=== PATIENT | male | born 1940 | race Caucasian/White ===

== ENCOUNTER 2020-07-19 19:37 | Inpatient (IN) ==
[2020-07-19] MEDS ORDERED: Aspirin 81 MG TAB.CHEW PO STA (21:37)
[2020-07-19] MEDS ORDERED: Ondansetron 4 MG/2 ML VIAL IVP PRN (22:01)
[2020-07-19] MEDS ORDERED: Acetaminophen 325 MG TABLET PO PRN (22:01)
[2020-07-19] MEDS ORDERED: Naloxone 0.4 MG/ML INJ IVP PRN (22:01)
[2020-07-19] MEDS ORDERED: Perflutren Lipid Microsphere 1.3 ML in 0.9 % Sodium Chloride 8.7 ML IVP PRN (22:04)
[2020-07-19] MEDS ORDERED: *HR* Dextrose 50 % in Water (Vial) 50 ML VIAL IVP PRN (22:05)
[2020-07-19] MEDS ORDERED: Dextrose Gel 15 GM/37.5 ML TUBE PO PRN ×2 (22:05)
[2020-07-19] MEDS ORDERED: D5% in Water 1,000 ML IVC PRN (22:05)
[2020-07-20] MEDS: Insulin LISPRO 300 UNITS/3 ML VIAL SUBQ SCH ×4 (00:06→18:18)
[2020-07-20 02:10] LABS: Basophils # 0.1 K/mcL (0.0-0.2); Basophils % 0.5 %; Eosinophils # 0.2 K/mcL (0.0-0.6); Eosinophils % 2.4 %; Hematocrit 36.3 % (37.5-50.1); Hemoglobin 11.5 g/dL (12.9-16.9); Immature Granulocytes % 0.4 % (0-4); Lymphocytes # 1.3 K/mcL (0.6-4.6); Lymphocytes % 14.6 %; Mean Corpuscular HGB Conc 31.7 g/dL (31.6-35.5); Mean Corpuscular Hemoglobin 29.7 pg (28.0-33.3); Mean Corpuscular Volume 93.8 fL (83.0-100.0); Mean Platelet Volume 10.6 fL (9.4-12.4); Monocytes # 0.7 K/mcL (0.0-1.3); Monocytes % 7.8 %; Neutrophils # 6.8 K/mcL (1.6-8.9); Platelet Count 266 K/mcL (140-400); Red Blood Count 3.87 M/mcL (4.19-5.50); Red Cell Distribution Width 15.4 % (11.5-14.5); Segmented Neutrophils % 74.3 %; White Blood Count 9.2 K/mcL (4.3-11.1)
[2020-07-20 02:15] LABS: INR 1.2; Prothrombin Time 14.1 Seconds (9.4-12.1)
[2020-07-20 02:37] LABS: Alanine Aminotransferase 27 Units/L (7-52); Albumin 3.5 g/dL (3.5-5.7); Albumin/Globulin Ratio 1.3 (1.1-2.2); Alkaline Phosphatase 85 Units/L (34-104); Aspartate Amino Transferase 22 Units/L (13-39); BUN/Creatinine Ratio 19 (6-26); Bilirubin,Total 0.6 mg/dL (0.3-1.0); Blood Urea Nitrogen 15 mg/dL (8-23); Calcium 8.1 mg/dL (8.6-10.3); Carbon Dioxide 25 mEq/L (23-29); Chloride 108 mEq/L (98-107); Chol/HDL Ratio 1.9 (0-4.9); Cholesterol 96 mg/dL (< 200); Globulin 2.6 g/dL (2.4-3.5); Glucose 244 mg/dL (70-105); HDL Cholesterol 51 mg/dL (40-59); LDL Cholesterol,Calculated 35 mg/dL (< 100); Osmolality,Calculated 295 (280-300); Potassium 4.1 mEq/L (3.5-5.1); Sodium 138 mEq/L (136-145); Total Protein 6.1 g/dL (6.4-8.9); Triglycerides 51 mg/dL (< 150); eGFR For African Americans > 60 (> 60); eGFR For Non-African Americans > 60 (> 60)
[2020-07-20] MEDS ORDERED: Regadenoson 0.4 MG/5 ML SYRINGE IVP ONE (09:10)
[2020-07-20] MEDS: Aspirin 81 MG TAB.CHEW PO SCH (13:30)
[2020-07-20] MEDS: Metoprolol XL (24 HR) Succ 25 MG TAB.ER.24H PO SCH (13:30)
[2020-07-20] MEDS ORDERED: NON-FORMULARY MEDICATION 1 EACH EACH (Insulin Glargine [Lantus] 20 UNIT) SQ SCH (21:00)
[2020-07-20] MEDS: Insulin DETEMIR 100 UNIT/ML X5UNITS SUBQ SCH (21:49)
[2020-07-21] MEDS: Insulin LISPRO 300 UNITS/3 ML VIAL SUBQ SCH ×5 (00:23→23:23)
[2020-07-21 04:44] LABS: Hematocrit 38.2 % (37.5-50.1); Mean Corpuscular HGB Conc 31.4 g/dL (31.6-35.5); Mean Corpuscular Hemoglobin 29.5 pg (28.0-33.3); Mean Corpuscular Volume 93.9 fL (83.0-100.0); Platelet Count 276 K/mcL (140-400); Red Blood Count 4.07 M/mcL (4.19-5.50); Red Cell Distribution Width 15.1 % (11.5-14.5); White Blood Count 8.3 K/mcL (4.3-11.1)
[2020-07-21 05:00] LABS: BUN/Creatinine Ratio 20 (6-26); Blood Urea Nitrogen 16 mg/dL (8-23); Calcium 8.5 mg/dL (8.6-10.3); Carbon Dioxide 25 mEq/L (23-29); Chloride 107 mEq/L (98-107); Glucose 159 mg/dL (70-105); Osmolality,Calculated 293 (280-300); Potassium 4.2 mEq/L (3.5-5.1); Sodium 139 mEq/L (136-145); eGFR For African Americans > 60 (> 60); eGFR For Non-African Americans > 60 (> 60)
[2020-07-21] MEDS ORDERED: lisinopriL 20 MG TABLET PO SCH (09:00)
[2020-07-21] MEDS: Metoprolol XL (24 HR) Succ 25 MG TAB.ER.24H PO SCH (10:23)
[2020-07-21] MEDS: Aspirin 81 MG TAB.CHEW PO SCH (10:23)
[2020-07-21] MEDS ORDERED: *HR* Heparin 10,000 UNIT/10 ML VIAL ONE (10:47)
[2020-07-21] MEDS ORDERED: Heparin 1,000 UNITS/500 mL 500 ML ONE (10:47)
[2020-07-21] MEDS ORDERED: ISOVUE-370 200 ML INFUS..BTL ONE (10:47)
[2020-07-21] MEDS ORDERED: Nitroglycerin 1,000 MCG/10 ML VIAL IV ONE (10:48)
[2020-07-21] MEDS ORDERED: 0.9 % Sodium Chloride 2,000 ML ONE (10:48)
[2020-07-21] MEDS ORDERED: *HR* Midazolam HCl 2 MG/2 ML VIAL ONE (13:17)
[2020-07-21] MEDS ORDERED: *HR* FentaNYL (PF) 100 MCG/2 ML VIAL ONE (13:17)
[2020-07-21 17:06] LABS: Estimated Average Glucose 183 mg/dl
[2020-07-21 20:11] LABS: Influenza A PCR Negative (Negative); Influenza B PCR Negative (Negative); Resp. Syncytial Virus PCR Negative (Negative)
[2020-07-21 20:14] LABS: SARS-CoV-2 by PCR (In House) Negative (Negative)
[2020-07-21] MEDS: Chlorhexidine Rinse 15 ML MOUTHWASH MM SCH (20:34)
[2020-07-21] MEDS: Insulin DETEMIR 100 UNIT/ML X5UNITS SUBQ SCH (20:34)
[2020-07-22 04:27] LABS: Basophils % 0.6 %; Eosinophils # 0.3 K/mcL (0.0-0.6); Eosinophils % 3.5 %; Hematocrit 38.4 % (37.5-50.1); Hemoglobin 12.2 g/dL (12.9-16.9); Immature Granulocytes % 0.3 % (0-4); Lymphocytes # 1.7 K/mcL (0.6-4.6); Lymphocytes % 23.1 %; Mean Corpuscular HGB Conc 31.8 g/dL (31.6-35.5); Mean Corpuscular Volume 94.3 fL (83.0-100.0); Mean Platelet Volume 10.4 fL (9.4-12.4); Monocytes # 0.8 K/mcL (0.0-1.3); Monocytes % 11.3 %; Neutrophils # 4.4 K/mcL (1.6-8.9); Platelet Count 271 K/mcL (140-400); Red Blood Count 4.07 M/mcL (4.19-5.50); Segmented Neutrophils % 61.2 %; White Blood Count 7.2 K/mcL (4.3-11.1)
[2020-07-22 04:48] LABS: BUN/Creatinine Ratio 16 (6-26); Blood Urea Nitrogen 12 mg/dL (8-23); Calcium 8.6 mg/dL (8.6-10.3); Carbon Dioxide 23 mEq/L (23-29); Chloride 109 mEq/L (98-107); Glucose 132 mg/dL (70-105); Osmolality,Calculated 290 (280-300); Sodium 139 mEq/L (136-145); eGFR For African Americans > 60 (> 60); eGFR For Non-African Americans > 60 (> 60)
[2020-07-22] MEDS: Chlorhexidine Rinse 15 ML MOUTHWASH MM SCH ×2 (05:54→19:51)
[2020-07-22] MEDS ORDERED: Aspirin 81 MG TAB.CHEW PO ONE (06:00)
[2020-07-22] MEDS: Insulin LISPRO 300 UNITS/3 ML VIAL SUBQ SCH (06:04)
[2020-07-22] MEDS ORDERED: *HR* Midazolam HCl 5 MG/5 ML VIAL IVP ONE (06:59)
[2020-07-22] MEDS ORDERED: *HR* Propofol 200 MG/20 ML VIAL IVP ONE (06:59)
[2020-07-22] MEDS ORDERED: *HR* FentaNYL (PF) 1,000 MCG/20 ML VIAL ONE (06:59)
[2020-07-22] MEDS ORDERED: Famotidine 20 MG/2 ML VIAL ONE (07:00)
[2020-07-22] MEDS ORDERED: *HR* Rocuronium Bromide 50 MG/5 ML VIAL ONE ×2 (07:00→09:23)
[2020-07-22] MEDS ORDERED: Lidocaine 2% Syringe 100 MG/5 ML ONE (07:00)
[2020-07-22] MEDS ORDERED: CeFAZolin Syr 2,000MG/20 ML 2,000 MG/20 ML SYRINGE IVPB ONE (07:00)
[2020-07-22] MEDS ORDERED: *HR* Magnesium Sulfate 1 GM/2 ML VIAL ONE (07:00)
[2020-07-22] MEDS ORDERED: *HR* PHENYLEPHRINE 1,000 MCG/10 ML SYRINGE IVP ONE ×2 (07:00→09:26)
[2020-07-22] MEDS ORDERED: Dexamethasone 4 MG/ML VIAL ONE (07:00)
[2020-07-22] MEDS ORDERED: Tranexamic Acid 1,000 MG/10 ML VIAL ONE (07:04)
[2020-07-22] MEDS ORDERED: Dextrose 50 % in Water (Vial) 30 ML, Sodium Bicarbonate 20 MEQ, Potassium Chloride 15 M... TH ONE (07:45)
[2020-07-22] MEDS ORDERED: Heparin 15,000 UNIT in 0.9 % Sodium Chloride 500 ML IV ONE (07:45)
[2020-07-22] MEDS ORDERED: Norepinephrine 4 MG in 0.9 % Sodium Chloride 250 ML IVC PRN (07:45)
[2020-07-22] MEDS ORDERED: Dextrose 50 % in Water (Vial) 30 ML, Sodium Bicarbonate 20 MEQ, Lidocaine 1% 5 ML, Insu... TH ONE ×3 (07:45)
[2020-07-22] MEDS ORDERED: Insulin Human Regular 100 UNIT in 0.9 % Sodium Chloride 100 ML IV PRN (07:45)
[2020-07-22 08:25] LABS: ABG Base Excess 0 mEq/L (-2 to 3); ABG Chloride 106 mEq/L (98-107); ABG Glucose 145 mg/dL (60-95); ABG HCO3 25 mEq/L (21-27); ABG Ionized Calcium 1.16 mmol/L (1.15-1.35); ABG Oxygen Saturation 100 % (95-98); ABG PCO2 45 mmHg (35-45); ABG PH 7.36 pH Units (7.32-7.45); ABG PO2 365 mmHg (85-104); ABG TCO2 27 mEq/L (20-26)
[2020-07-22] MEDS ORDERED: EPINEPHrine 1 MG in D5% in Water 250 ML IVC SCH (08:45)
[2020-07-22] MEDS ORDERED: Albumin Human 5% 12.5 GM/250 ML IV.SOLN ONE (08:58)
[2020-07-22 09:46] LABS: ABG Base Excess -1 mEq/L (-2 to 3); ABG Chloride 104 mEq/L (98-107); ABG Glucose 196 mg/dL (60-95); ABG HCO3 24 mEq/L (21-27); ABG Ionized Calcium 0.93 mmol/L (1.15-1.35); ABG Oxygen Saturation 100 % (95-98); ABG PCO2 39 mmHg (35-45); ABG PO2 598 mmHg (85-104); ABG TCO2 25 mEq/L (20-26)
[2020-07-22] MEDS ORDERED: Albumin Human 5% 0 GM/0 ML IV.SOLN ONE (09:47)
[2020-07-22] MEDS ORDERED: Protamine Sulfate 250 MG/25 ML VIAL IVP ONE (10:08)
[2020-07-22] MEDS ORDERED: Calcium Gluconate 1,000 MG/10 ML VIAL ONE ×2 (10:08→10:09)
[2020-07-22] MEDS ORDERED: *HR* Vasopressin 20 UNIT/ML VIAL ONE (10:24)
[2020-07-22 10:47] LABS: ABG Base Excess 0 mEq/L (-2 to 3); ABG Chloride 105 mEq/L (98-107); ABG Glucose 178 mg/dL (60-95); ABG HCO3 24 mEq/L (21-27); ABG Ionized Calcium 0.99 mmol/L (1.15-1.35); ABG Oxygen Saturation 100 % (95-98); ABG PCO2 37 mmHg (35-45); ABG PH 7.43 pH Units (7.32-7.45); ABG PO2 549 mmHg (85-104); ABG TCO2 25 mEq/L (20-26)
[2020-07-22 10:51] LABS: ABG Base Excess -1 mEq/L (-2 to 3); ABG Chloride 101 mEq/L (98-107); ABG Glucose 143 mg/dL (60-95); ABG HCO3 24 mEq/L (21-27); ABG Ionized Calcium 1.01 mmol/L (1.15-1.35); ABG Oxygen Saturation 100 % (95-98); ABG PCO2 41 mmHg (35-45); ABG PH 7.38 pH Units (7.32-7.45); ABG PO2 459 mmHg (85-104); ABG TCO2 26 mEq/L (20-26)
[2020-07-22 11:23] LABS: ABG Base Excess 0 mEq/L (-2 to 3); ABG Chloride 105 mEq/L (98-107); ABG Glucose 124 mg/dL (60-95); ABG HCO3 25 mEq/L (21-27); ABG Ionized Calcium 1.17 mmol/L (1.15-1.35); ABG Oxygen Saturation 100 % (95-98); ABG PCO2 41 mmHg (35-45); ABG PO2 461 mmHg (85-104); ABG TCO2 26 mEq/L (20-26)
[2020-07-22 11:54] LABS: ABG Base Excess -1 mEq/L (-2 to 3); ABG Chloride 107 mEq/L (98-107); ABG Glucose 110 mg/dL (60-95); ABG HCO3 24 mEq/L (21-27); ABG Ionized Calcium 1.12 mmol/L (1.15-1.35); ABG Oxygen Saturation 100 % (95-98); ABG PCO2 42 mmHg (35-45); ABG PH 7.37 pH Units (7.32-7.45); ABG PO2 251 mmHg (85-104); ABG TCO2 26 mEq/L (20-26)
[2020-07-22] MEDS ORDERED: *HR* FentaNYL (PF) 100 MCG/2 ML VIAL IVP PRN (11:58)
[2020-07-22] MEDS ORDERED: Calcium Gluconate 1gm/50mL 1 GM/50 ML BAG IVPB PRN (11:58)
[2020-07-22] MEDS ORDERED: Ondansetron 4 MG/2 ML VIAL IVP PRN (11:58)
[2020-07-22] MEDS ORDERED: Albumin Human 5% 12.5 GM/250 ML IV.SOLN IVPB PRN (11:58)
[2020-07-22] MEDS ORDERED: Acetaminophen 325 MG TABLET PO PRN (11:58)
[2020-07-22] MEDS ORDERED: Acetaminophen 650 MG RECTAL SUPP RC PRN (11:58)
[2020-07-22] MEDS ORDERED: Potassium Chloride 40 MEQ/200 ML BAG IVPB PRN (11:58)
[2020-07-22] MEDS ORDERED: Insulin Regular, Human 100 UNIT/ML IV PRN (11:58)
[2020-07-22] MEDS ORDERED: *HR* Dextrose 50 % in Water (Vial) 50 ML VIAL IVP PRN ×2 (11:58→12:07)
[2020-07-22] MEDS ORDERED: Naloxone 0.4 MG/ML INJ IVP PRN (11:58)
[2020-07-22] MEDS ORDERED: Norepinephrine 4 MG/254 ML IV.SOLN IVC SCH (12:00)
[2020-07-22] MEDS ORDERED: Insulin Human Regular 100 UNIT in 0.9 % Sodium Chloride 100 ML IVC SCH ×2 (12:00→12:15)
[2020-07-22 12:59] LABS: ABG Base Excess -2 mEq/L (-2 to 3); ABG HCO3 23 mEq/L (21-27); ABG Oxygen Saturation 99 % (95-98); ABG PCO2 39 mmHg (35-45); ABG PH 7.38 pH Units (7.32-7.45); ABG PO2 144 mmHg (85-104); ABG TCO2 25 mEq/L (20-26); Blood Gas Modality ASSIST CONTROL; Blood Gas VT 500 cc
[2020-07-22] MEDS ORDERED: 0.9 % Sodium Chloride w KCl 20 MEQ/1,000 ML MLS IVC SCH (13:00)
[2020-07-22] MEDS: *HR* OxyCODONE/APAP 5/325 TABLET PO PRN ×2 (13:15→17:46)
[2020-07-22] MEDS: Metoclopramide 10 MG/2 ML VIAL IVP SCH ×3 (13:16→23:20)
[2020-07-22] MEDS: 0.9 % Sodium Chloride w KCl 20 MEQ/1,000 ML MLS IVC SCH ×2 (13:17→14:20)
[2020-07-22 13:22] LABS: Basophils % 0.2 %; Eosinophils # 0.1 K/mcL (0.0-0.6); Eosinophils % 0.4 %; Hematocrit 31.6 % (37.5-50.1); Immature Granulocytes % 0.7 % (0-4); Lymphocytes # 0.6 K/mcL (0.6-4.6); Lymphocytes % 3.5 %; Mean Corpuscular HGB Conc 31.6 g/dL (31.6-35.5); Mean Corpuscular Hemoglobin 30.1 pg (28.0-33.3); Mean Corpuscular Volume 95.2 fL (83.0-100.0); Mean Platelet Volume 10.8 fL (9.4-12.4); Monocytes # 0.9 K/mcL (0.0-1.3); Monocytes % 5.8 %; Platelet Count 156 K/mcL (140-400); Red Blood Count 3.32 M/mcL (4.19-5.50); Red Cell Distribution Width 15.2 % (11.5-14.5); Segmented Neutrophils % 89.4 %
[2020-07-22] MEDS: niCARdipine 20 MG/200 ML MLS IVC SCH ×5 (13:27→23:20)
[2020-07-22 13:28] LABS: Neutrophils # 14.5 K/mcL (1.6-8.9); White Blood Count 16.2 K/mcL (4.3-11.1)
[2020-07-22 13:32] LABS: INR 1.4; Prothrombin Time 16.5 Seconds (9.4-12.1)
[2020-07-22 13:35] LABS: Activated Partial Thrombo Time 26.3 Seconds (26.0-36.0)
[2020-07-22 13:46] LABS: BUN/Creatinine Ratio 17 (6-26); Blood Urea Nitrogen 12 mg/dL (8-23); Calcium 8.3 mg/dL (8.6-10.3); Carbon Dioxide 24 mEq/L (23-29); Chloride 108 mEq/L (98-107); Glucose 131 mg/dL (70-105); Magnesium 3.1 mg/dL (1.6-2.6); Osmolality,Calculated 292 (280-300); Potassium 4.1 mEq/L (3.5-5.1); Sodium 140 mEq/L (136-145); eGFR For African Americans > 60 (> 60); eGFR For Non-African Americans > 60 (> 60)
[2020-07-22] MEDS: Pantoprazole 40 MG VIAL IVP SCH (15:22)
[2020-07-22 15:52] LABS: ABG Base Excess -4 mEq/L (-2 to 3); ABG HCO3 21 mEq/L (21-27); ABG Oxygen Saturation 89 % (95-98); ABG PCO2 39 mmHg (35-45); ABG PH 7.35 pH Units (7.32-7.45); ABG PO2 59 mmHg (85-104); ABG TCO2 22 mEq/L (20-26); Blood Gas Modality CPAP/PS; Blood Gas Pressure Support 5 cm H2O
[2020-07-22] MEDS ORDERED: Albumin Human 25% 25 GM/100 ML IV.SOLN IVPB ONE (15:54)
[2020-07-22] MEDS ORDERED: *HR* Phenylephrine 10 MG/ML VIAL IVC ONE (15:54)
[2020-07-22] MEDS ORDERED: Tranexamic Acid 1,000 MG/10 ML VIAL IR ONE (15:54)
[2020-07-22] MEDS ORDERED: Lidocaine 2% Syringe 100 MG/5 ML IVP ONE (15:54)
[2020-07-22] MEDS ORDERED: *HR* Heparin 10,000 UNIT/10 ML VIAL IR ONE (15:54)
[2020-07-22] MEDS ORDERED: Mannitol 25% vial 12.5 GM/50 ML VIAL IVPB ONE (15:54)
[2020-07-22] MEDS ORDERED: *HR* Magnesium Sulfate 2 GM/50 ML PIGGYBACK IVPB ONE (15:54)
[2020-07-22] MEDS: CeFAZolin 2 GM/120 ML BAG IVPB SCH ×2 (16:23→23:20)
[2020-07-23] MEDS: *HR* OxyCODONE/APAP 5/325 TABLET PO PRN ×4 (03:59→20:06)
[2020-07-23] MEDS: niCARdipine 20 MG/200 ML MLS IVC SCH (04:06)
[2020-07-23 04:08] LABS: Basophils % 0.1 %; Hematocrit 31.9 % (37.5-50.1); Hemoglobin 10.1 g/dL (12.9-16.9); Immature Granulocytes % 0.4 % (0-4); Lymphocytes # 0.7 K/mcL (0.6-4.6); Lymphocytes % 4.6 %; Mean Corpuscular HGB Conc 31.7 g/dL (31.6-35.5); Mean Corpuscular Hemoglobin 30.1 pg (28.0-33.3); Mean Corpuscular Volume 95.2 fL (83.0-100.0); Mean Platelet Volume 11.3 fL (9.4-12.4); Monocytes # 1.5 K/mcL (0.0-1.3); Monocytes % 10.1 %; Neutrophils # 12.8 K/mcL (1.6-8.9); Platelet Count 158 K/mcL (140-400); Red Blood Count 3.35 M/mcL (4.19-5.50); Red Cell Distribution Width 15.4 % (11.5-14.5); Segmented Neutrophils % 84.8 %; White Blood Count 15.1 K/mcL (4.3-11.1)
[2020-07-23 04:11] LABS: INR 1.3; Prothrombin Time 15.4 Seconds (9.4-12.1)
[2020-07-23 04:14] LABS: Activated Partial Thrombo Time 26.6 Seconds (26.0-36.0)
[2020-07-23 04:26] LABS: BUN/Creatinine Ratio 19 (6-26); Blood Urea Nitrogen 19 mg/dL (8-23); Carbon Dioxide 23 mEq/L (23-29); Chloride 113 mEq/L (98-107); Glucose 110 mg/dL (70-105); Magnesium 2.5 mg/dL (1.6-2.6); Osmolality,Calculated 297 (280-300); Potassium 3.9 mEq/L (3.5-5.1); Sodium 142 mEq/L (136-145); eGFR For African Americans > 60 (> 60); eGFR For Non-African Americans > 60 (> 60)
[2020-07-23] MEDS: Metoclopramide 10 MG/2 ML VIAL IVP SCH ×3 (05:33→20:05)
[2020-07-23] MEDS ORDERED: 0.9 % Sodium Chloride 1,000 ML ONE (06:52)
[2020-07-23] MEDS: Pantoprazole 40 MG VIAL IVP SCH (07:25)
[2020-07-23] MEDS: Chlorhexidine Rinse 15 ML MOUTHWASH MM SCH ×2 (07:26→20:05)
[2020-07-23] MEDS ORDERED: Aspirin Enteric Coated 81 MG Tablet PO SCH (09:00)
[2020-07-23] MEDS ORDERED: Furosemide 20 MG/2 ML VIAL IVP SCH (09:00)
[2020-07-23] MEDS ORDERED: Acetaminophen 325 MG TABLET PO PRN (09:52)
[2020-07-23] MEDS ORDERED: Dextrose Gel 15 GM/37.5 ML TUBE PO PRN ×4 (09:52)
[2020-07-23] MEDS ORDERED: Naloxone 0.4 MG/ML INJ IVP PRN (09:52)
[2020-07-23] MEDS ORDERED: D5% in Water 1,000 ML IVC PRN (09:52)
[2020-07-23] MEDS ORDERED: *HR* Dextrose 50 % in Water (Vial) 50 ML VIAL IVP PRN ×4 (09:52)
[2020-07-23] MEDS ORDERED: Insulin Regular, Human 100 UNIT/ML IV PRN (09:52)
[2020-07-23] MEDS ORDERED: Ondansetron 4 MG/2 ML VIAL IVP PRN (09:52)
[2020-07-23] MEDS ORDERED: Insulin Human Regular 100 UNIT in 0.9 % Sodium Chloride 100 ML IVC SCH (09:52)
[2020-07-23] MEDS ORDERED: *HR* FentaNYL (PF) 100 MCG/2 ML VIAL IVP PRN (11:58)
[2020-07-23] MEDS: Insulin LISPRO 300 UNITS/3 ML VIAL SUBQ SCH ×3 (12:54→22:07)
[2020-07-23] MEDS: *HR* Heparin 5,000 UNIT/ML VIAL SQ SCH ×2 (14:13→19:19)
[2020-07-23] MEDS: Furosemide 20 MG/2 ML VIAL IVP SCH (20:05)
[2020-07-24] MEDS: Metoclopramide 10 MG/2 ML VIAL IVP SCH ×4 (02:40→17:48)
[2020-07-24] MEDS: *HR* Heparin 5,000 UNIT/ML VIAL SQ SCH (04:45)
[2020-07-24] MEDS ORDERED: *HR* Metoprolol 5 MG/5 ML VIAL IVP ONE (05:39)
[2020-07-24] MEDS ORDERED: *HR* Heparin 5,000 UNIT/ML VIAL IVP PRN ×2 (05:40)
[2020-07-24] MEDS ORDERED: Heparin 25,000UNIT/250ML 1/2NS 25,000 UNIT/250 ML IV.SOLN IVC SCH (05:45)
[2020-07-24 06:36] LABS: Hematocrit 33.1 % (37.5-50.1); Hemoglobin 10.4 g/dL (12.9-16.9); Mean Corpuscular HGB Conc 31.4 g/dL (31.6-35.5); Mean Corpuscular Volume 95.4 fL (83.0-100.0); Mean Platelet Volume 11.1 fL (9.4-12.4); Platelet Count 170 K/mcL (140-400); Red Blood Count 3.47 M/mcL (4.19-5.50); Red Cell Distribution Width 15.9 % (11.5-14.5); White Blood Count 16.1 K/mcL (4.3-11.1)
[2020-07-24 06:42] LABS: Heparin anti-factor XA UFH < 0.04 IU/mL (0.30-0.70)
[2020-07-24 06:43] LABS: INR 1.3; Prothrombin Time 14.9 Seconds (9.4-12.1)
[2020-07-24] MEDS: Aspirin Enteric Coated 81 MG Tablet PO SCH (07:53)
[2020-07-24] MEDS: Pantoprazole 40 MG VIAL IVP SCH (07:53)
[2020-07-24] MEDS: Chlorhexidine Rinse 15 ML MOUTHWASH MM SCH ×2 (07:54→21:41)
[2020-07-24] MEDS: Furosemide 20 MG/2 ML VIAL IVP SCH ×2 (07:55→21:40)
[2020-07-24] MEDS: Insulin LISPRO 300 UNITS/3 ML VIAL SUBQ SCH ×4 (08:06→21:43)
[2020-07-24] MEDS ORDERED: Amiodarone Premix 360 MG/200 ML BAG IVC ONE (10:41)
[2020-07-24] MEDS ORDERED: Amiodarone Premix 150 MG/100 ML BAG IVPB ONE (10:41)
[2020-07-24] MEDS: Amiodarone Premix 360 MG/200 ML BAG IVC SCH (17:48)
[2020-07-25] MEDS: Metoclopramide 10 MG/2 ML VIAL IVP SCH ×3 (01:04→13:54)
[2020-07-25] MEDS: Amiodarone Premix 360 MG/200 ML BAG IVC SCH ×2 (03:30→16:35)
[2020-07-25] MEDS ORDERED: Melatonin 3 MG TABLET PO ONE (03:38)
[2020-07-25] MEDS: Insulin LISPRO 300 UNITS/3 ML VIAL SUBQ SCH ×4 (10:16→21:00)
[2020-07-25] MEDS: Furosemide 20 MG/2 ML VIAL IVP SCH ×2 (10:17→21:00)
[2020-07-25] MEDS: Chlorhexidine Rinse 15 ML MOUTHWASH MM SCH ×2 (10:18→21:00)
[2020-07-25] MEDS: Aspirin Enteric Coated 81 MG Tablet PO SCH (10:18)
[2020-07-25] MEDS: Pantoprazole 40 MG VIAL IVP SCH (10:19)
[2020-07-25] MEDS: *HR* Heparin 5,000 UNIT/ML VIAL SQ SCH ×2 (13:57→18:20)
[2020-07-26] MEDS: Amiodarone Premix 360 MG/200 ML BAG IVC SCH (04:00)
[2020-07-26] MEDS: *HR* Heparin 5,000 UNIT/ML VIAL SQ SCH ×2 (04:01→17:24)
[2020-07-26] MEDS: Aspirin Enteric Coated 81 MG Tablet PO SCH (10:02)
[2020-07-26] MEDS: *HR* Amiodarone 200 MG TABLET PO SCH ×2 (10:02→20:39)
[2020-07-26] MEDS: Chlorhexidine Rinse 15 ML MOUTHWASH MM SCH ×2 (10:02→20:39)
[2020-07-26] MEDS: Pantoprazole 40 MG VIAL IVP SCH (10:02)
[2020-07-26] MEDS: Insulin LISPRO 300 UNITS/3 ML VIAL SUBQ SCH ×4 (11:36→20:41)
[2020-07-26] MEDS ORDERED: Insulin DETEMIR 100 UNIT/ML X5UNITS SUBQ ONE (17:00)
[2020-07-27 01:17] LABS: Basophils % 0.4 %; Eosinophils # 0.3 K/mcL (0.0-0.6); Eosinophils % 2.6 %; Hematocrit 33.8 % (37.5-50.1); Hemoglobin 10.6 g/dL (12.9-16.9); Immature Granulocytes % 0.4 % (0-4); Lymphocytes # 1.6 K/mcL (0.6-4.6); Lymphocytes % 14.2 %; Mean Corpuscular HGB Conc 31.4 g/dL (31.6-35.5); Mean Corpuscular Volume 92.3 fL (83.0-100.0); Monocytes # 1.2 K/mcL (0.0-1.3); Monocytes % 11.1 %; Neutrophils # 7.8 K/mcL (1.6-8.9); Platelet Count 226 K/mcL (140-400); Red Blood Count 3.66 M/mcL (4.19-5.50); Red Cell Distribution Width 14.6 % (11.5-14.5); Segmented Neutrophils % 71.3 %; White Blood Count 10.9 K/mcL (4.3-11.1)
[2020-07-27 01:35] LABS: BUN/Creatinine Ratio 25 (6-26); Blood Urea Nitrogen 20 mg/dL (8-23); Calcium 8.1 mg/dL (8.6-10.3); Carbon Dioxide 26 mEq/L (23-29); Chloride 101 mEq/L (98-107); Glucose 162 mg/dL (70-105); Osmolality,Calculated 286 (280-300); Potassium 3.5 mEq/L (3.5-5.1); Sodium 135 mEq/L (136-145); eGFR For African Americans > 60 (> 60); eGFR For Non-African Americans > 60 (> 60)
[2020-07-27] MEDS: *HR* Heparin 5,000 UNIT/ML VIAL SQ SCH (05:15)
[2020-07-27 07:09] VITALS: BP 144/73
[2020-07-27] MEDS: Insulin LISPRO 300 UNITS/3 ML VIAL SUBQ SCH (07:47)
[2020-07-27] MEDS: Aspirin Enteric Coated 81 MG Tablet PO SCH (09:13)
[2020-07-27] MEDS: *HR* Amiodarone 200 MG TABLET PO SCH (09:13)
[2020-07-27] MEDS: Chlorhexidine Rinse 15 ML MOUTHWASH MM SCH (09:13)
[2020-07-27] MEDS ORDERED: Insulin DETEMIR 100 UNIT/ML X5UNITS SUBQ SCH (21:00)
== END 2020-07-27 11:13 | disposition home or self-care (01) | DRG 234 ==
LOC: EMEROOARM 19:37 → 3BNU 19:37 → ICNU 07-21 23:13 → 2NNU 07-23 18:56
PROVIDERS: ADMIT Internal Medicine; ATTEND Internal Medicine

== ENCOUNTER 2020-08-17 20:14 | Inpatient (IN) ==
[2020-08-17] MEDS ORDERED: Naloxone 0.4 MG/ML INJ IVP PRN (23:07)
[2020-08-18] MEDS ORDERED: Ondansetron 4 MG/2 ML VIAL IVP PRN (00:13)
[2020-08-18] MEDS ORDERED: *HR* HYDROcodone/Acet 5/325 mg TABLET PO PRN (00:13)
[2020-08-18] MEDS ORDERED: *HR* OxyCODONE Immed Rel 5 MG TABLET PO PRN (00:13)
[2020-08-18] MEDS ORDERED: Acetaminophen 325 MG TABLET PO PRN (00:13)
[2020-08-18] MEDS ORDERED: Dextrose Gel 15 GM/37.5 ML TUBE PO PRN ×2 (00:17)
[2020-08-18] MEDS ORDERED: D5% in Water 1,000 ML IVC PRN (00:17)
[2020-08-18] MEDS ORDERED: *HR* Dextrose 50 % in Water (Vial) 50 ML VIAL IVP PRN (00:17)
[2020-08-18 01:40] LABS: Basophils # 0.1 K/mcL (0.0-0.2); Basophils % 0.7 %; Eosinophils # 0.3 K/mcL (0.0-0.6); Eosinophils % 2.8 %; Hematocrit 34.9 % (37.5-50.1); Hemoglobin 10.6 g/dL (12.9-16.9); Immature Granulocytes % 0.6 % (0-4); Lymphocytes # 1.2 K/mcL (0.6-4.6); Lymphocytes % 13.3 %; Mean Corpuscular HGB Conc 30.4 g/dL (31.6-35.5); Mean Corpuscular Hemoglobin 28.2 pg (28.0-33.3); Mean Corpuscular Volume 92.8 fL (83.0-100.0); Mean Platelet Volume 10.9 fL (9.4-12.4); Monocytes # 0.8 K/mcL (0.0-1.3); Monocytes % 8.4 %; Neutrophils # 6.6 K/mcL (1.6-8.9); Platelet Count 134 K/mcL (140-400); Red Blood Count 3.76 M/mcL (4.19-5.50); Red Cell Distribution Width 16.6 % (11.5-14.5); Segmented Neutrophils % 74.2 %; White Blood Count 8.9 K/mcL (4.3-11.1)
[2020-08-18 01:45] LABS: INR 1.4; Prothrombin Time 16.1 Seconds (9.4-12.1)
[2020-08-18 02:00] LABS: Alanine Aminotransferase 27 Units/L (7-52); Albumin 2.9 g/dL (3.5-5.7); Alkaline Phosphatase 106 Units/L (34-104); Aspartate Amino Transferase 20 Units/L (13-39); BUN/Creatinine Ratio 15 (6-26); Bilirubin,Total 0.6 mg/dL (0.3-1.0); Blood Urea Nitrogen 11 mg/dL (8-23); Calcium 7.7 mg/dL (8.6-10.3); Carbon Dioxide 27 mEq/L (23-29); Chloride 106 mEq/L (98-107); Globulin 2.9 g/dL (2.4-3.5); Glucose 117 mg/dL (70-105); Magnesium 1.8 mg/dL (1.6-2.6); Osmolality,Calculated 292 (280-300); Phosphorous 3.6 mg/dL (2.7-4.5); Potassium 3.2 mEq/L (3.5-5.1); Sodium 141 mEq/L (136-145); Total Protein 5.8 g/dL (6.4-8.9); eGFR For African Americans > 60 (> 60); eGFR For Non-African Americans > 60 (> 60)
[2020-08-18] MEDS ORDERED: Calcium Gluconate 1gm/50mL 1 GM/50 ML BAG IVPB PRN (03:37)
[2020-08-18] MEDS ORDERED: Potassium Phosphate 44 MEQ in 0.9 % Sodium Chloride 250 ML IVPB PRN (03:37)
[2020-08-18] MEDS: Insulin LISPRO 300 UNITS/3 ML VIAL SUBQ SCH ×4 (07:26→20:46)
[2020-08-18] MEDS: Metoprolol XL (24 HR) Succ 25 MG TAB.ER.24H PO SCH (07:50)
[2020-08-18] MEDS: *HR* Amiodarone 200 MG TABLET PO SCH (07:50)
[2020-08-18] MEDS: Furosemide 40 MG/4 ML VIAL IVP SCH ×2 (07:50→17:39)
[2020-08-18] MEDS: Aspirin 81 MG TAB.CHEW PO SCH (07:50)
[2020-08-18] MEDS: lisinopriL 20 MG TABLET PO SCH (07:50)
[2020-08-18 16:41] LABS: RBC,Pleural Fluid < 2000 RBC/mcL
[2020-08-18 16:55] LABS: Total Protein,Pleural Fluid 2.7 g/dL
[2020-08-18 17:26] LABS: Appearance of Pleural Fl Clear (Clear)
[2020-08-18 19:00] LABS: Basophils,Pleural Fluid 0 %
[2020-08-18] MEDS: Insulin DETEMIR 100 UNIT/ML X5UNITS SUBQ SCH (20:47)
[2020-08-19 01:25] LABS: Basophils # 0.1 K/mcL (0.0-0.2); Basophils % 0.6 %; Eosinophils # 0.5 K/mcL (0.0-0.6); Eosinophils % 5.7 %; Hematocrit 34.7 % (37.5-50.1); Hemoglobin 10.7 g/dL (12.9-16.9); Immature Granulocytes % 0.4 % (0-4); Lymphocytes # 1.3 K/mcL (0.6-4.6); Lymphocytes % 14.8 %; Mean Corpuscular HGB Conc 30.8 g/dL (31.6-35.5); Mean Corpuscular Hemoglobin 28.9 pg (28.0-33.3); Mean Corpuscular Volume 93.8 fL (83.0-100.0); Mean Platelet Volume 10.5 fL (9.4-12.4); Monocytes # 0.6 K/mcL (0.0-1.3); Monocytes % 7.1 %; Neutrophils # 6.4 K/mcL (1.6-8.9); Platelet Count 134 K/mcL (140-400); Red Cell Distribution Width 16.5 % (11.5-14.5); Segmented Neutrophils % 71.4 %
[2020-08-19 01:46] LABS: BUN/Creatinine Ratio 18 (6-26); Blood Urea Nitrogen 16 mg/dL (8-23); Calcium 7.8 mg/dL (8.6-10.3); Carbon Dioxide 28 mEq/L (23-29); Chloride 105 mEq/L (98-107); Glucose 145 mg/dL (70-105); Magnesium 2.2 mg/dL (1.6-2.6); Osmolality,Calculated 292 (280-300); Potassium 3.7 mEq/L (3.5-5.1); Sodium 139 mEq/L (136-145); eGFR For African Americans > 60 (> 60); eGFR For Non-African Americans > 60 (> 60)
[2020-08-19] MEDS: Furosemide 40 MG/4 ML VIAL IVP SCH ×2 (07:39→16:37)
[2020-08-19] MEDS: Ascorbic Acid 500 MG TABLET PO SCH (07:39)
[2020-08-19] MEDS: Aspirin 81 MG TAB.CHEW PO SCH (07:39)
[2020-08-19] MEDS: *HR* Amiodarone 200 MG TABLET PO SCH (07:39)
[2020-08-19] MEDS: lisinopriL 20 MG TABLET PO SCH (07:40)
[2020-08-19] MEDS: Metoprolol XL (24 HR) Succ 25 MG TAB.ER.24H PO SCH (07:40)
[2020-08-19] MEDS: Insulin LISPRO 300 UNITS/3 ML VIAL SUBQ SCH ×3 (07:41→16:38)
[2020-08-19] MEDS ORDERED: Furosemide 40 MG/4 ML VIAL IVP ONE (11:21)
[2020-08-19 17:41] LABS: Total Protein,Pleural Fluid 2.8 g/dL
[2020-08-19 19:19] LABS: RBC,Pleural Fluid < 2000 RBC/mcL
[2020-08-19] MEDS: Insulin DETEMIR 100 UNIT/ML X5UNITS SUBQ SCH (20:26)
[2020-08-19 20:44] LABS: Appearance of Pleural Fl Clear (Clear); Eosinophils,Pleural Fluid 0 %
[2020-08-20] MEDS: Insulin LISPRO 300 UNITS/3 ML VIAL SUBQ SCH ×3 (07:55→12:38)
[2020-08-20] MEDS: *HR* Amiodarone 200 MG TABLET PO SCH (08:01)
[2020-08-20] MEDS: Metoprolol XL (24 HR) Succ 25 MG TAB.ER.24H PO SCH (08:01)
[2020-08-20] MEDS: Aspirin 81 MG TAB.CHEW PO SCH (08:01)
[2020-08-20] MEDS: Ascorbic Acid 500 MG TABLET PO SCH (08:01)
[2020-08-20] MEDS: lisinopriL 20 MG TABLET PO SCH (08:02)
[2020-08-20] MEDS: Furosemide 40 MG/4 ML VIAL IVP SCH (08:02)
[2020-08-20 12:02] VITALS: BP 124/66
[2020-08-20 20:49] LABS: Fluid Source for Albumin PLEURAL
== END 2020-08-20 12:50 | disposition home or self-care (01) | DRG 291 ==
LOC: 2NNU → SUATTDRO 22:35 → 2ANU 08-19 13:31
PROVIDERS: ADMIT Student in an Organized Health Care Education/Training Program; ATTEND Family Medicine

== ENCOUNTER 2020-10-25 13:59 | Inpatient (IN) ==
[2020-10-25] MEDS ORDERED: Acetaminophen 325 MG TABLET PO PRN (17:20)
[2020-10-25] MEDS ORDERED: Ondansetron 4 MG/2 ML VIAL IVP PRN (17:20)
[2020-10-25] MEDS ORDERED: D5% in Water 1,000 ML IVC PRN (17:20)
[2020-10-25] MEDS ORDERED: Dextrose Gel 15 GM/37.5 ML TUBE PO PRN ×2 (17:20)
[2020-10-25] MEDS ORDERED: Naloxone 0.4 MG/ML INJ IVP PRN (17:20)
[2020-10-25] MEDS ORDERED: *HR* Dextrose 50 % in Water (Vial) 50 ML VIAL IVP PRN (17:20)
[2020-10-25] MEDS: *HR* Heparin 5,000 UNIT/ML VIAL SQ SCH (17:58)
[2020-10-25] MEDS: Furosemide 20 MG/2 ML VIAL IVP SCH (20:43)
[2020-10-25] MEDS ORDERED: Insulin DETEMIR 100 UNIT/ML X5UNITS SUBQ SCH (21:00)
[2020-10-26 05:23] LABS: Basophils # 0.1 K/mcL (0.0-0.2); Basophils % 0.6 %; Eosinophils # 0.2 K/mcL (0.0-0.6); Hematocrit 33.7 % (37.5-50.1); Hemoglobin 10.2 g/dL (12.9-16.9); Immature Granulocytes % 0.3 % (0-4); Lymphocytes # 1.7 K/mcL (0.6-4.6); Lymphocytes % 21.3 %; Mean Corpuscular HGB Conc 30.3 g/dL (31.6-35.5); Mean Corpuscular Volume 89.2 fL (83.0-100.0); Mean Platelet Volume 10.8 fL (9.4-12.4); Monocytes # 0.9 K/mcL (0.0-1.3); Neutrophils # 4.9 K/mcL (1.6-8.9); Platelet Count 330 K/mcL (140-400); Red Blood Count 3.78 M/mcL (4.19-5.50); Red Cell Distribution Width 18.3 % (11.5-14.5); Segmented Neutrophils % 62.8 %; White Blood Count 7.8 K/mcL (4.3-11.1)
[2020-10-26] MEDS: *HR* Heparin 5,000 UNIT/ML VIAL SQ SCH ×2 (05:23→17:39)
[2020-10-26 05:52] LABS: BUN/Creatinine Ratio 17 (6-26); Blood Urea Nitrogen 15 mg/dL (8-23); Calcium 8.6 mg/dL (8.6-10.3); Carbon Dioxide 31 mEq/L (23-29); Chloride 105 mEq/L (98-107); Glucose 85 mg/dL (70-105); Osmolality,Calculated 292 (280-300); Phosphorous 4.7 mg/dL (2.7-4.5); Potassium 4.4 mEq/L (3.5-5.1); Sodium 141 mEq/L (136-145); Troponin I 0.05 ng/mL (< 0.04); eGFR For African Americans > 60 (> 60); eGFR For Non-African Americans > 60 (> 60)
[2020-10-26] MEDS: Insulin LISPRO 300 UNITS/3 ML VIAL SUBQ SCH ×3 (08:08→17:41)
[2020-10-26 08:53] LABS: INR 1.3; Prothrombin Time 14.5 Seconds (9.4-12.1)
[2020-10-26] MEDS ORDERED: *HR* Amiodarone 200 MG TABLET PO SCH (09:00)
[2020-10-26] MEDS: Furosemide 20 MG/2 ML VIAL IVP SCH ×2 (10:45→20:17)
[2020-10-26] MEDS: Metoprolol XL (24 HR) Succ 50 MG TAB.ER.24H PO SCH (10:46)
[2020-10-26] MEDS: Aspirin 81 MG TAB.CHEW PO SCH (10:46)
[2020-10-26] MEDS: lisinopriL 20 MG TABLET PO SCH (10:53)
[2020-10-26] MEDS ORDERED: Perflutren Lipid Microsphere 1.3 ML in 0.9 % Sodium Chloride 8.7 ML IVP PRN (13:01)
[2020-10-26 18:53] LABS: Total Protein,Pleural Fluid 2.9 g/dL
[2020-10-26] MEDS: Insulin DETEMIR 100 UNIT/ML X5UNITS SUBQ SCH (20:24)
[2020-10-27 03:37] LABS: BUN/Creatinine Ratio 22 (6-26); Blood Urea Nitrogen 17 mg/dL (8-23); Calcium 8.3 mg/dL (8.6-10.3); Carbon Dioxide 28 mEq/L (23-29); Chloride 103 mEq/L (98-107); Glucose 111 mg/dL (70-105); Magnesium 1.9 mg/dL (1.6-2.6); Osmolality,Calculated 286 (280-300); Phosphorous 4.2 mg/dL (2.7-4.5); Potassium 3.3 mEq/L (3.5-5.1); Sodium 137 mEq/L (136-145); eGFR For African Americans > 60 (> 60); eGFR For Non-African Americans > 60 (> 60)
[2020-10-27] MEDS: *HR* Heparin 5,000 UNIT/ML VIAL SQ SCH ×2 (05:43→17:02)
[2020-10-27] MEDS: Furosemide 20 MG/2 ML VIAL IVP SCH (09:06)
[2020-10-27] MEDS: Aspirin 81 MG TAB.CHEW PO SCH (09:07)
[2020-10-27] MEDS: lisinopriL 20 MG TABLET PO SCH (09:07)
[2020-10-27] MEDS: Metoprolol XL (24 HR) Succ 50 MG TAB.ER.24H PO SCH (09:09)
[2020-10-27] MEDS: Insulin LISPRO 300 UNITS/3 ML VIAL SUBQ SCH ×3 (09:10→17:06)
[2020-10-27] MEDS ORDERED: Furosemide 40 MG TABLET PO SCH (17:00)
[2020-10-27] MEDS: Insulin DETEMIR 100 UNIT/ML X5UNITS SUBQ SCH (22:10)
[2020-10-28] MEDS: *HR* Heparin 5,000 UNIT/ML VIAL SQ SCH (05:25)
[2020-10-28] MEDS ORDERED: Furosemide 20 MG TABLET PO SCH (08:00)
[2020-10-28] MEDS: Insulin LISPRO 300 UNITS/3 ML VIAL SUBQ SCH ×2 (08:13→11:23)
[2020-10-28] MEDS: Aspirin 81 MG TAB.CHEW PO SCH (08:15)
[2020-10-28] MEDS ORDERED: lisinopriL 20 MG TABLET PO SCH (09:00)
[2020-10-28 09:41] LABS: BUN/Creatinine Ratio 26 (6-26); Blood Urea Nitrogen 28 mg/dL (8-23); Calcium 8.7 mg/dL (8.6-10.3); Carbon Dioxide 29 mEq/L (23-29); Chloride 101 mEq/L (98-107); Glucose 143 mg/dL (70-105); Osmolality,Calculated 294 (280-300); Potassium 3.7 mEq/L (3.5-5.1); Sodium 138 mEq/L (136-145); eGFR For African Americans > 60 (> 60); eGFR For Non-African Americans > 60 (> 60)
[2020-10-28 11:12] VITALS: BP 95/58
[2020-10-28] MEDS ORDERED: Metoprolol XL (24 HR) Succ 25 MG TAB.ER.24H PO SCH (11:15)
== END 2020-10-28 14:46 | disposition home health service (06) | DRG 291 ==
LOC: 3BNU → SUATTDRO 18:22
PROVIDERS: ADMIT Internal Medicine; ATTEND Internal Medicine